=== PATIENT | male | born 1985 | race Two or more races ===

== ENCOUNTER 2024-12-14 07:44 | Day surgery (SDC) | payer BC ==
[~2024-12-14] VITALS: Ht 190.5 cm; Wt 142.9 kg
[2024-12-14] MEDS ORDERED: ONDANSETRON HCL 4 MG/2 ML VIAL IV ONE (09:30)
[2024-12-14] MEDS ORDERED: METOCLOPRAMIDE HCL 5MG/ml INJ 2ml VIAL IV ONE (09:30)
[2024-12-14] MEDS ORDERED: hydrALAZINE HCL 20 MG/ML VL IV PRN (09:30)
[2024-12-14] MEDS ORDERED: KETOROLAC TROMETH 30 MG/ML 1ML VIAL IV ONE (09:30)
[2024-12-14] MEDS ORDERED: HYDROmorphone HCL 2 MG/ML VL/or syr IV PRN (09:30)
[2024-12-14] MEDS ORDERED: fentaNYL CITRATE 100 MCG/2 ML VL ONE (09:34)
[2024-12-14] MEDS ORDERED: PROPOFOL 10 MG/ML 20 ML IV ONE (09:34)
[2024-12-14] MEDS ORDERED: MIDAZOLAM HCL 2MG/2ML 2ml VIAL (1mg/ml) ONE (09:34)
[2024-12-14] MEDS ORDERED: METOCLOPRAMIDE HCL 5MG/ml INJ 2ml VIAL ONE (09:35)
[2024-12-14] MEDS ORDERED: ONDANSETRON HCL 4 MG/2 ML VIAL ONE (09:35)
--- NOTE | 2024-12-14 09:38 | DVHOP2 ---
Operative Report - 2 Report Details Date: 12/14/24 Preop Diagnosis: Left carpal tunnel Postop Diagnosis: Left carpal tunnel Surgeon: Ravinder Amaral MD Machine Gun Mechanic: Basilio THOMPSON Anesthesiologist: Isidoro MITCHELL Anesthesia: Mac, Local Consent: The patient was informed of the risks and benefits of the procedure. These incl ude but are not limited to complications of anesthesia, postoperative infection, incomplete relief of symptoms, recurrence of symptoms, damage to blood vessels, nerves and tendons, deep venous thrombosis, pulmonary embolism and possible need for repeat surgery in the future. Estimated Blood Loss: 2 cc Name of Procedure Performed Left carpal tunnel release Procedure Details Procedure Details: Indications: he has tried bracing/NSAIDs/injections without relief. he has had EMG/NCV testing that is consistent with her clinical exam. he wishes to proceed with surgical intervention. Risks/benefits/options and alternatives were discussed in depth with patient. Risks include but not exclusive to: bleeding, infection, nerve injury, chronic pain, stiffness, motor or sensory paralysis, loss of limb, deep venous thrombosis, and . PROCEDURE IN DETAIL: Patient was seen in the preoperative area. Consent was signed and then she was taken to the operating room. With the patient under adequate anesthesia, the upper extremity was prepped and draped in a sterile manner. The arm was exsanguinated. The tourniquet was elevated at 250 mm/Hg. Construction lines were made on the palm to identify the ring ray. A 3 cm vertical incision made in midpalm along ring finger. Blunt dissection exposed the palmar fascia which was divided. Hemostasis was obtained with bipolar cautery. Retractors were then placed to allow visualization of the distal extent of the transverse carpal ligament, and this was then divided longitudinally under direct vision. Baby Metzenbaum scissors were used to dissect distal to this area to confirm the absence of any remaining crossing obstructing fibrous band. Retractors were then replaced proximally to allow visualization of proximal extent of the transverse carpal ligament and the release was continued proximally until complete release was performed. This was confirmed by visually and palpably. Next, baby Metzenbaum scissors were used to dissect anteroposterior adjacent antebrachial fascia, and this was divided longitudinally under direct vision using baby Metzenbaum scissors to a level of approximately 3 cm proximal to the proximal extent of the skin incision. Radial and ulnar edges of the transverse carpal ligament were identified, and complete release was confirmed. The wound was then closed with 3-0 nylon for carpal tunnel. sterile dressing was applied. The tourniquet was deflated. The patient was awakened from anesthesia and returned to the Recovery Room in satisfactory condition, having tolerated the procedure well. Condition Good Disposition Still a Patient RAVINDER AMARAL MD Dec 14, 2024 09:38
[2024-12-14] MEDS: ceFAZolin 2 GM/D5W50ml 50 ML IV ONE (09:50)
[2024-12-14] MEDS: BUPIVACAINE 0.5% P/F INJ 10 ML VIAL ONE (09:50)
[2024-12-14 10:00] VITALS: PULSE 73; RESP 15; TEMP 98; O2SAT 94
[2024-12-14 10:30] VITALS: BP 104/62; PULSE 64; RESP 19; O2SAT 94
== END 2024-12-14 10:40 | disposition home or self-care (01) ==
LOC: SUR 07:44
PROVIDERS: ATTEND Orthopaedic Surgery Adult Reconstructive Orthopaedic Surgery
DX: G56.02 Carpal tunnel syndrome, left upper limb (principal); F17.210 Nicotine dependence, cigarettes, uncomplicated; E66.3 Overweight; Z68.39 Body mass index [BMI] 39.0-39.9, adult; Z98.890 Other specified postprocedural states
CPT/HCPCS: 64721; J0690; J2250; J2405; J2704; J2765; J3010; J3490

== ENCOUNTER → 2025-02-22 | Day surgery (SDC) | payer BC ==
[~2025-02-22] VITALS: Ht 190.5 cm; Wt 142.9 kg
[~2025-02-22] MED LIST: HYDROmorphone HCL 2 MG/ML VL/or syr IV PRN; KETAMINE 50mg/ML 1ml syringe ONE; KETOROLAC TROMETH 30 MG/ML 1ML VIAL IV ONE; LIDOCAINE 1% INJ PF 5ML AMP ONE; METOCLOPRAMIDE HCL 5MG/ml INJ 2ml VIAL IV ONE; MIDAZOLAM HCL 2MG/2ML 2ml VIAL (1mg/ml) ONE; MORPHINE SULFATE 4 MG/ML SYR/VIAL IV PRN; MORPHINE SULFATE INJ 2 MG/ml SYRG IV PRN; ONDANSETRON HCL 4 MG/2 ML VIAL ONE; PROPOFOL 10 MG/ML 20 ML IV ONE; SODIUM CHLORIDE LOCK 10 ML ONE; fentaNYL CITRATE 100 MCG/2 ML VL ONE
[2025-02-22] MEDS: BUPIVACAINE HCL 0.25% P/F 10 ML VIAL ONE (13:07)
[2025-02-22] MEDS: ceFAZolin 2 GM/D5W50ml 50 ML IV ONE (13:08)
[2025-02-22 13:18] VITALS: PULSE 74; RESP 20; O2SAT 96
[2025-02-22] MEDS: LIDOCAINE 1% HCL (LOCAL ANESTH.) INJ 20ML MDV ONE (13:35)
[2025-02-22 13:48] VITALS: BP 138/83; PULSE 68; RESP 15; O2SAT 96
--- NOTE | 2025-02-26 07:53 | DVHOP2 ---
Operative Report - 2 Report Details Date: 02/22/25 Preop Diagnosis: Right carpal tunnel Postop Diagnosis: Right carpal tunnel Surgeon: Ravinder Amaral MD Anesthesiologist: Shay HERNANDEZ Anesthesia: Mac, Local Consent: The patient was informed of the risks and benefits of the procedure. These include but are not limited to complications of anesthesia, postoperative infection, incomplete relief of symptoms, recurrence of symptoms, damage to blood vessels, nerves and tendons, deep venous thrombosis, pulmonary embolism and possible need for repeat surgery in the future. Estimated Blood Loss: 2 cc Name of Procedure Performed Right carpal tunnel release Procedure Details Procedure Details: Indications: he has tried bracing/NSAIDs/injections without relief. he has had EMG/NCV testing that is consistent with her clinical exam. he wishes to proceed with surgical intervention. Risks/benefits/options and alternatives were discussed in depth with patient. Risks include but not exclusive to: bleeding, infection, nerve injury, chronic pain, stiffness, motor or sensory paralysis, loss of limb, deep venous thrombosis, and . PROCEDURE IN DETAIL: Patient was seen in the preoperative area. Consent was signed and then he was taken to the operating room. With the patient under adequate anesthesia, the upper extremity was prepped and draped in a sterile manner. The arm was exsanguinated. The tourniquet was elevated at 250 mm/Hg. Construction lines were made on the palm to identify the ring ray. A 3 cm vertical incision made in midpalm along ring finger. Blunt dissection exposed the palmar fascia which was divided. Hemostasis was obtained with bipolar cautery. Retractors were then placed to allow visualization of the distal extent of the transverse carpal ligament, and this was then divided longitudinally under direct vision. Baby Metzenbaum scissors were used to dissect distal to this area to confirm the absence of any remaining crossing obstructing fibrous band. Retractors were then replaced proximally to allow vis ualization of proximal extent of the transverse carpal ligament and the release was continued proximally until complete release was performed. This was confirmed by visually and palpably. Next, baby Metzenbaum scissors were used to dissect anteroposterior adjacent antebrachial fascia, and this was divided longitudinally under direct vision using baby Metzenbaum scissors to a level of approximately 3 cm proximal to the proximal extent of the skin incision. Radial and ulnar edges of the transverse carpal ligament were identified, and complete release was confirmed. The wound was then closed with 3-0 nylon for carpal tunnel. sterile dressing was applied. The tourniquet was deflated. The patient was awakened from anesthesia and returned to the Recovery Room in satisfactory condition, having tolerated the procedure well. Condition Good Disposition Home RAVINDER AMARAL MD Feb 26, 2025 07:53
== END | disposition home or self-care (01) ==
LOC: SUR 08:28
PROVIDERS: ATTEND Orthopaedic Surgery Adult Reconstructive Orthopaedic Surgery
DX: G56.01 Carpal tunnel syndrome, right upper limb (principal)
CPT/HCPCS: 64721; J0690; J2003; J2250; J2405; J2704; J3010; J3490